=== PATIENT | male | born 1965 | race Caucasian/White ===

== ENCOUNTER 2019-04-28 11:55 | Emergency (ER) | payer OTHER, BC ==
--- NOTE | 2019-04-28 12:11 | EDM.PDOC ---
ED HPI GENERAL MEDICAL PROBLEM - General Chief Complaint: Laceration Stated Complaint: cut on hand Time Seen by Provider: 04/28/19 12:06 - History of Present Illness INITIAL COMMENTS - FREE TEXT/NARRATIVE: Patient's a 53-year-old male presents status post injury to fifth digit of left hand with partial amputation tetanus status is to be determined he denies other trauma or concern Definitive disposition and diagnosis as appropriate pending reevaluation and review of above. Review of systems: As per history of present illness and below otherwise all systems reviewed and negative. Past medical history: As per history of present illness and as reviewed below otherwise noncontributory. Surgical history: As per history of present illness and as reviewed below otherwise noncontributory. Social history: No reported history of drug or alcohol abuse. Family history: As per history of present illness and as reviewed below otherwise noncontributory. Physical exam: HEENT: Atraumatic, normocephalic, pupils reactive, negative for conjunctival pallor or scleral icterus, mucous membranes moist, throat clear, neck supple, nontender, trachea midline. Lungs: Clear to auscultation, breath sounds equal bilaterally, chest nontender. Heart: S1S2, regular, negative for clicks, rubs, or JVD. Abdomen: Soft, nondistended, nontender. Negative for masses or hepatosplenomegaly. Negative for costovertebral tenderness. Pelvis: Stable nontender. Genitourinary: Deferred. Rectal: Deferred. Extremities: Patient has an avulsion/partial amputation injury to the distal aspect of the fifth digit neurovascular exams unremarkable there's good hemostasis Neuro: Awake, alert, oriented. Cranial nerves II through XII unremarkable. Cerebellum unremarkable. Motor and sensory unremarkable throughout. Exam nonfocal. Diagnostics: X-ray left hand Therapeutics: Irrigation with copious amounts 0.9 normal saline after digital block Vaseline gauze and occlusive dressing / sling applied Impression: #1 hand injury ( open tuft fracture) Definitive disposition and diagnosis as appropriate pending reevaluation and review of above. left pinky finger Pain Score (Numeric/FACES): 8 - Related Data Allergies Allergy/AdvReac Type Severity Reaction Status Date / Time No Known Allergies Allergy Verified 04/28/19 12:13 ED ROS GENERAL - Review of Systems Review Of Systems: ROS reveals no pertinent complaints other than HPI. ED EXAM, SKIN/RASH Exam: See Below (See dictation) Course - Vital Signs Last Recorded V/S: Last Vital Signs Temp 37.0 C 04/28/19 12:07 Pulse 57 L 04/28/19 12:07 Resp 20 04/28/19 12:07 BP 137/81 04/28/19 12:07 Pulse Ox 98 04/28/19 12:07 - Orders/Labs/Meds Meds: Medications Discontinued Medications Generic Name Dose Route Start Last Admin Trade Name Feng PRN Reason Stop Dose Admin Bupivacaine HCl Confirm 04/28/19 12:13 Sensorcaine-Mpf 0.5% Administered 04/28/19 12:14 Dose 10 ml .ROUTE .STK-MED ONE Cefazolin Sodium/Dextrose 1 gm 50 mls @ 100 mls/hr 04/28/19 13:01 / Premix IV 04/28/19 13:30 ONETIME ONE Departure - Departure Time of Disposition: 13:05 Disposition: Home, Self-Care 01 Condition: Good Clinical Impression: Hand injury, Open fracture of tuft of distal phalanx of finger - Discharge Information Referrals: PCP,Unknown [Primary Care Provider] - Forms: ED Department Discharge Additional Instructions: The following information is given to patients seen in the emergency department who are being discharged to home. This information is to outline your options for follow-up care. We provide all patients seen in our emergency department with a follow-up referral. The need for follow-up, as well as the timing and circumstances, are variable depending upon the specifics of your emergency department visit. If you don't have a primary care physician on staff, we will provide you with a referral. We always advise you to contact your personal physician following an emergency department visit to inform them of the circumstance of the visit and for follow-up with them and/or the need for any referrals to a consulting specialist. The emergency department will also refer you to a specialist when appropriate. This referral assures that you have the opportunity for followup care with a specialist. All of these measure are taken in an effort to provide you with optimal care, which includes your followup. Under all circumstances we always encourage you to contact your private physician who remains a resource for coordinating your care. When calling for followup care, please make the office aware that this follow-up is from your recent emergency room visit. If for any reason you are refused follow-up, please contact the [facility] emergency department at and asked to speak to the emergency department charge nurse. Follow-up occupational medicine and hand surgery as discussed Keflex hydrocodone as prescribed sling as directed reevaluation 24-48 hours return as needed as discussed
[2019-04-28] MEDS ORDERED: Bupivacaine 0.5% 10 ML SDV ONE (12:13)
--- NOTE | 2019-04-28 12:45 | CR ---
HISTORY: Left hand small finger trauma. TECHNIQUE: Three views of the left hand. COMPARISON: No prior. FINDINGS: Small acute displaced fracture involving the distal tuft of the distal phalanx of the small finger of the left hand. There is an associated soft tissue defect. No other fracture. Osseous structures otherwise intact. Ulnar minus variance. Joint spaces maintained. IMPRESSION: Acute displaced small fracture of the distal tuft of the distal phalanx of the small finger of the left hand. Associated soft tissue defect. Dictated by Aditya Hung MD @ 04/28/2019 12:42:47 PM Dictated by: Aditya Hung MD @ 04/28/2019 12:42:50 (Electronically Signed)
[2019-04-28] MEDS ORDERED: ceFAZolin 1 GM in Premix Bag 1 BAG IV ONE (13:01)
[2019-04-28] MEDS ORDERED: ceFAZolin 1 GM Vial IM ONE (13:04)
[2019-04-28] MEDS ORDERED: Bupivacaine 0.5% 10 ML SDV INJECT ONE (13:04)
[2019-04-28] MEDS ORDERED: Water For Injection, Sterile 20 ML ONE (13:18)
== END 2019-04-28 13:44 | disposition home or self-care (01) ==
LOC: MW.ED 11:55
DX: S62.637B Displaced fracture of distal phalanx of left little finger, initial encounter for open fracture (principal); X58.XXXA Exposure to other specified factors, initial encounter
CPT/HCPCS: 64450; 73130; 96372; 99283; J0690; J3490; 99282